=== PATIENT | female | born 1985 | race Caucasian/White ===

== ENCOUNTER 2018-12-04 08:59 | Outpatient (REF) | payer BC, SELFPAY ==
[2018-12-04 13:55] LABS: TSH (W/Ref FT4) 92.99 uIU/mL (0.358-3.74)
[2018-12-04 14:19] LABS: FREE T4 0.47 ng/dL (0.76-1.46)
== END 2018-12-04 09:19 ==
LOC: NCHCN 08:59
PROVIDERS: PCP Nurse Practitioner Family; Visit Provider Nurse Practitioner Family
DX: E03.9 Hypothyroidism, unspecified (principal)
CPT/HCPCS: 84439; 84443

== ENCOUNTER 2019-01-14 16:21 | Outpatient (REF) | payer BC, SELFPAY ==
--- NOTE | 2019-01-14 15:30 | PAPFT_PTH ---
PATIENT: Vicki Chi LOC: [facility] U#:[id number] AGE/SX: 33/F ROOM: RE01/14/[address]: Rhea Estrada : 1985 BED: DIS: 01/14/2019 SPEC #: [id number] RECD: 01/14/19 18:07 STATUS: CECE RESamantha #: [id number] MARIJA: 01/14/19 15:[address]: Rhea Estrada DEPT: [facility] Cytology RECD BY: Teodora Patiño Tissues: 1 - CX/ENDOCX FOR PAP SMEARS Procedures: PAP THIN PREP/UVM Screening HPV DNA PROBE Comments: [id number]
== END 2019-01-14 16:41 ==
LOC: NCHCN 16:21
PROVIDERS: PCP Nurse Practitioner Family; Visit Provider Nurse Practitioner Family
DX: Z00.00 Encounter for general adult medical examination without abnormal findings (principal); Z12.4 Encounter for screening for malignant neoplasm of cervix; Z11.51 Encounter for screening for human papillomavirus (HPV)
CPT/HCPCS: 88142; 87624

== ENCOUNTER 2019-04-17 09:52 | Emergency (ER) | payer BC, SELFPAY ==
[2019-04-17 09:58] VITALS: BP 134/87; PULSE 105; RESP 16; TEMP 37; O2SAT 98
--- NOTE | 2019-04-17 10:08 | DI.CT_ITS ---
SYMPTOMS/DIAGNOSIS: BLUNT LT ANTERIOR FOCAL TRAUMA, PAIN CHEST CT: The study was carried out without contrast enhancement. There is no evidence of a pneumothorax or pleural effusion. The lungs are clear. The cardiovascular structures appear intact. No acute bony abnormality is apparent. Incidentally in the upper abdomen the visualized portions of the liver are normal. The spleen is normal. SUMMARY: Normal noncontrast enhanced chest CT.
--- NOTE | 2019-04-17 10:11 | ED.GENADUL_ITS ---
Discharge Plan Disposition Patient Disposition: HOME Condition: Improving Discharge Details Chief Complaint: Chest/Rib Clinical Impression: Contusion of left chest wall Primary Care Provider: Joby Bhatia ED Provider: Colin Anderson Home Meds and New Rx's Prescriptions: Continued levothyroxine [Synthroid] 125 MCG tablet 125 mcg PO DAILY RF: 0 Discontinued amoxicillin 500 MG capsule 500 mg PO TID Qty: 30 RF: 0 Discharge Instructions Instructions: Contusion in Adults (ED) Additional Instructions: He will likely develop increased bruising and discomfort over the next 24 hours. Tylenol and/or ibuprofen as needed for pain. May alternate heat and ice to reduce discomfort. 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 She tripped in her classroom and fell forward striking the edge of a cabinet with her left anterior chest. There is no loss of consciousness. She developed immediate left anterior chest pain and some mild shortness of breath. She is anxious and tachycardic on arrival but oxygenation is normal. She is tender to palpation over the left anterior chest wall. Concern for contusion, hematoma, underlying rib fracture and less likely a pneumothorax. Patient re ferred for noncontrast CT scan of the chest which is unremarkable. She is improved with oral analgesics. She is stable for discharge to home ECG Data Attestation: I personally reviewed and interpreted this ECG (s) as follows: Interpretation: Normal sinus rhythm with a rate of 89, the QRS is narrow, no ST segment elevation present HPI General Mode of arrival: ambulatory . Date/Time Provider Initiated Documentation: 04/17/19 09:56 . Limitations to Documentation: no limitations . Information obtained by: patient and family . History of Present Illness 34 year old F presents to the emergency department with the chief complaint of Fall and left anterior chest trauma. Pain, described as moderate, Quality is described as dull and constant, and is localized to the chest. Patient reports no radiation. Patient started experiencing this minute(s) and it has been constant. No relieving factors improve symptom(s), Movement worsens symptoms . Patient notes shortness of breath. Patient did receive the following treatments prior to arrival, none Related Data Home Medications Medication Instructions Recorded Confirmed levothyroxine [Synthroid] 125 mcg PO DAILY 03/29/13 03/29/13 Allergies Allergy/AdvReac Type Severity Reaction Status Date / Time hydrocodone [Hydrocodone] Allergy Unknown Unverified 03/29/13 14:51 General Stated Complaint: Chest/Rib SANDRA: 3 Review of Systems Review of Systems No other injury. No penetrating trauma. 8 systems reviewed and otherwise negative [facility] Social History Smoking/Tobacco Use Status: Never Drug use: Never Do you feel safe at home: Yes Do you feel safe in your relationship?: Yes Exam Narrative Exam Narrative: GEN: awake, alert, oriented 3. Pleasant, well groomed, interactive. HEAD: Normocephalic, atraumatic ENT: Mucous membranes moist, oropharynx unremarkable, External ear exam unremarkable EYES: PERRL, EOMI NECK: Full ROM, no SARAH, no menigismus CHEST/RESP: Left anterior chest wall tenderness with focal area of 2 cm abrasion. No crepitus, clear to auscultation bilateral, no wheeze/rhonchi/rales CARDIOVASCULAR: RRR, no murmur, rub sergei. 2+ Rad pulse bilateral ABDOMEN: Soft, nontender, no mass. +Bowel sounds EXT: Full ROM, no edema, no rash Neuro: Grossly normal neurologic exam, conversant, interactive. Psych: Speech fluent, thoughts congruent, affect anxious Course Vital Signs Temperature 37.0 C 04/17/19 09:58 Pulse 105 H 04/17/19 09:58 Respiratory Rate 16 04/17/19 09:58 Blood Pressure 134/87 04/17/19 09:58 Pulse Oximetry 98 04/17/19 09:58 Temperature 37.0 C 04/17/19 09:58 Temperature Source Temporal Artery Scan 04/17/19 09:58 Pulse 105 H 04/17/19 09:58 Respiratory Rate 16 04/17/19 09:58 Respiratory Effort 04/17/19 10:01 Blood Pressure 134/87 04/17/19 09:58 Blood Pressure Position Sitting 04/17/19 09:58 Pulse Oximetry 98 04/17/19 09:58 Oxygen Delivery Method Room Air 04/17/19 09:58 Oxygen Flow Rate 0 04/17/19 09:58 Pain Level 6 04/17/19 09:58
[2019-04-17] MEDS: Ibuprofen 800 MG TAB PO (10:33)
[2019-04-17] MEDS: Acetaminophen 500 MG TAB 1000 MG PO (11:04)
== END 2019-04-17 11:47 | disposition home or self-care (01) ==
PROVIDERS: Emergency Provider Emergency Medicine; PCP Nurse Practitioner Family
DX: S20.212A Contusion of left front wall of thorax, initial encounter (principal); W01.198A Fall on same level from slipping, tripping and stumbling with subsequent striking against other object, initial encounter
CPT/HCPCS: 71250; 93005; 99284; 93010

== ENCOUNTER 2019-05-27 13:44 | Outpatient (REF) | payer BC, SELFPAY ==
[2019-05-27 20:23] LABS: TSH (W/Ref FT4) 4.14 uIU/mL (0.358-3.74)
[2019-05-27 21:05] LABS: FREE T4 1.34 ng/dL (0.76-1.46)
== END 2019-05-27 14:04 ==
LOC: NCHCN 13:44
PROVIDERS: PCP Nurse Practitioner Family; Visit Provider Nurse Practitioner Family
DX: E03.9 Hypothyroidism, unspecified (principal)
CPT/HCPCS: 84439; 84443

== ENCOUNTER 2019-12-02 06:52 | Emergency (ER) | payer OTHER, SELFPAY ==
[2019-12-02 07:02] VITALS: BP 122/61; PULSE 78; RESP 20; TEMP 36.8; O2SAT 97
--- NOTE | 2019-12-02 07:36 | ED.GENADUL_ITS ---
Discharge Plan Disposition Patient Disposition: HOME Condition: Stable Discharge Details Chief Complaint: Orthopedic Clinical Impression: Patellar fracture Primary Care Provider: Joby Bhatia ED Provider: Alcira Ramsay Home Meds and New Rx's Prescriptions: No Action levothyroxine [Synthroid] 125 MCG tablet 125 mcg PO DAILY RF: 0 Discharge Instructions Instructions: Patellar Fracture (ED), Knee Immobilizer (ED) Additional Instructions: Please return immediately to the emergency department if you develop any new or worsening symptoms, if your condition does not improve as expected, or if you become otherwise concerned. It is extremely important that you call soon as possible to make an appointment to be seen in follow-up for this visit by your primary care doctor, and also by an orthopedic surgeon within 7 to 10 days as we discussed. Stand Alone Forms: Work Release Referrals: Colin Roldan MD [[facility] STAFF PHYSICIAN] - Joby Bhatia NP [Primary Care Provider] - Discharge Data Discharge Date/Time-TO BE ENTERED AT DEPARTURE: 12/02/19 12:50 Medical Decision Making Vicki Arevalo is a 34-year-old woman with a history of Graves' disease who presented to the emergency with knee pain after slipping on ice and landing on her left knee. On exam there is tenderness palpation of the lateral aspect of the left knee joint and left patella. Distal left leg neurovascularly intact. Concern for possible patellar fracture, possible tibial plateau fracture. Concern for possible patellar dislocation spontaneously reduced vs less likely posterior knee dislocation spontaneously reduced. Plan for CT knee, screening labs. Xray obtained while awaiting labs, CT. Shows patellar fracture. Labs reviewed, WNL. CT shows patellar fracture, possible small condylar fx. Discussed Pt presentation results with Dr. Roldan of ortho, who requested knee immobilizer, will see Pt as outpt. I discussed results and plan with Pt, she requests additional pain meds now and for bedtime tonight. Plan for oxycodone 5mg now and also one tab for take home. I had a lengthy discussion with Patient regarding safe opiate use, return to emergency department precautions, home care, and importance of outpatient follow-up. Pt verbalizes understanding of the plan and is amenable. Patient discharged to home with clear plan for outpatient follow-up. All questions were answered. Disposition decision was made weighing the risks and benefits of hospitalization versus outpatient treatment, the risk for further decompensation, and the patient's wishes. Medical Records Medical records reviewed: Yes I reviewed the patient's medical records. Imaging Data Radiologic Study: Attestation: I personally reviewed and interpreted this imaging study as nya brennan: Radiologist's impression: EXAM: XR KNEE LT 4V AP,LAT,STEFANI,PAT INDICATION: trauma, knee pain. COMPARISON: No exams were available for comparison TECHNIQUE: 2D digital imaging was performed. FINDINGS: On the lateral view, there is a curvilinear density anterior to the femoral condyles suspicious for a displaced fracture. On the sunrise view, there is irregularity of the cortex of the lateral patella consistent with a fracture. There are several osseous densities seen posterior and lateral to the patella suggesting displaced fracture fragments. No other fracture or dislocation is seen. IMPRESSION: 1. Fracture involving the lateral aspect of the patella with displaced fracture fragments. 2. Curvilinear density seen anterior to the femoral condyles on the lateral view suspicious for a displaced fracture fragment. EXAM: CT LOWER EXTREMITY LT W CLINICAL HISTORY: trauma, r/o popliteal artery injury TECHNIQUE: CT angiography about the knee was performed following the uneventful administration of 175 mL of Omnipaque [address] angiography was performed with multi-slice acquisition and multi-planar and/or 3D reconstructions. COMPARISON: XR KNEE LT 4V AP,LAT,STEFANI,PAT from 12/02/2019 FINDINGS: There is again seen a comminuted fracture involving the lateral aspect of the patella. The fracture fragments are mildly displaced posteriorly and inferiorly. There is a curvilinear density seen anterior to the lateral femoral condyle. This was present on the x-ray of the knee. This may represent a displaced fracture from the femoral condyle. No other fracture or dislocation is identified. The popliteal artery appears intact . There is no evidence of contrast extravasation. There is a small joint effusion. IMPRESSION: 1. Fractures involving the lateral aspect of the patella and the lateral femoral condyle as described above. 2. No evidence of popliteal arterial injury. 3. The findings were discussed with the emergency department on the date of the examination. Lab Data Lab results reviewed: Yes I reviewed the patient's lab results. Labs: Laboratory Tests Range/Units 12/02/19 09:10 Sodium (136-145) mmol/L 141 Potassium (3.5-5.1) mmol/L 4.2 Chloride (98-107) mmol/L 105 Carbon Dioxide (21.0-32.0) mmol/L 27.3 Anion Gap (3-11) mmol/L 8.7 BUN (7-18) mg/dL 10 Creatinine (0.55-1.02) mg/dL 0.66 Estimated GFR/1.73 m2 (mL/min/1.73m2) >= 60.00 Glucose (74-106) mg/dL 106 Calcium (8.5-10.1) mg/dL 8.7 HPI General Mode of arrival: wheelchair . Date/Time Provider Initiated Documentation: 12/02/19 06:55 . Limitations to Documentation: no limitations . Information obtained by: patient, RN notes reviewed and old records reviewed . HPI Narrative: Vicki Arevalo is a 34 y/o woman with history of Graves' disease presenting to the emergency department with knee pain. Patient reports that she was walking into work when she slipped on ice. She states that her left leg went out straight behind her, and she landed on her left leg. Right leg went out in front of her. Patient reports that she does not think she hit her head. She does not believe that she lost consciousness, although she states that she does not remember the moment right when she hit the ground. Patient states that fall was mechanical from slipping, she had no symptoms prior to the fall. Patient reports that after the fall she felt that something was out of place in her knee, and when she went to move it popped back in but popped back in wrong. Patient reports that she has not been able to walk due to pain with weightbearing on the left leg since the fall, and continues to have left knee pain. She denies any pain of the left hip, lower leg, ankle, or foot. Patient denies any other body pain. She reports that 3 days ago she had a fever and vomiting, but that resolved after 24 hours and yesterday and this morning she felt very well and in her usual state of health. No cough, shortness of breath, fevers, vomiting, diarrhea, rash, weakness, numbness. Related Data Home Medications Medication Instructions Recorded Confirmed levothyroxine [Synthroid] 125 mcg PO DAILY 03/29/13 12/02/19 Allergies Allergy/AdvReac Type Severity Reaction Status Date / Time hydrocodone [Hydrocodone] Allergy Unknown Other (See Unverified 12/02/19 07:06 Comment) General Stated Complaint: Orthopedic SANDRA: 3 Review of Systems Narrative: Constitutional: denies fevers Eyes: denies eye pain ENT: denies ear pain, dental pain, sore throat Cardiovascular: denies chest pain Respiratory: denies SOB, cough GI: denies abdominal pain, vomiting, diarrhea : denies flank pain MSK: reports knee pain, denies any other joint pain, back pain, neck pain Skin: denies rash Neuro: denies headaches, numbness, weakness [facility] Social History Smoking/Tobacco Use Status: Never Alcohol Intake: current Alcohol Intake frequency: holidays/special occasions only Alcohol type: wine Drug use: Never Substance use type: does not use Do you feel safe at home: Yes Do you feel safe in your relationship?: Yes Exam Narrative Exam Narrative: Constitutional: [id number], pleasant, tearful and uncomfortable appearing but conversing normally HENT: head atraumatic/normocephalic/normal inspection, mucous membranes moist Eyes: conjunctiva normal, sclera normal, pupils 3mm b/l Neck: no stridor, normal ROM, trachea midline Resp: normal work of breathing Cardio: normal rate, normal rhythm Skin: warm, dry, normal color, no rash Neuro: alert, not altered, grossly non-focal, normal tone Ext: no edema, ecchymosis present along with 3 linear less than 0.5 cm supe rficial abrasions to the anteromedial aspect of the left knee, no effusion of the left knee, patella diffusely tender to palpation, medial left knee joint diffusely tender to palpation, medial aspect of the proximal tibia tender to palpation, no tenderness palpation of the thigh, midshaft or distal tibia, fibula, or ankle. No posterior calf tenderness to palpation. Full range of motion of the ankle and toes. Patient holding knee in 15 degrees of flexion, can flex to approximately 45 degrees, range of motion significantly limited by pain. Left hip nontender to palpation, able to range hip, though hip range of motion limited secondary to pain in the knee. Left DP and PT pulses intact, left foot warm and well-perfused, sensation intact. Ranging other extremities normally, other extremities atraumatic. Psych: normal mood, normal affect, normal behavior Course Vital Signs Vital signs: Vital Signs Temperature 36.8 C 12/02/19 07:02 Pulse 78 12/02/19 07:02 Respiratory Rate 20 12/02/19 07:02 Blood Pressure 122/61 12/02/19 07:02 Pulse Oximetry 97 12/02/19 07:02 Temperature 36.8 C 12/02/19 07:02 Temperature Source Temporal Artery Scan 12/02/19 07:02 Pulse 78 12/02/19 07:02 Respiratory Rate 20 12/02/19 07:02 Respiratory Effort Non-Labored 12/02/19 07:06 Blood Pressure 122/61 12/02/19 07:02 Pulse Oximetry 97 12/02/19 07:02 Oxygen Delivery Method Room Air 12/02/19 07:02 Oxygen Flow Rate 0 12/02/19 07:02 Pain Level 9 12/02/19 07:02
[2019-12-02] MEDS: oxyCODONE 5 MG TAB PO ×3 (07:49→12:26)
--- NOTE | 2019-12-02 08:24 | DI.RAD_ITS ---
EXAM: XR KNEE LT 4V AP,LAT,STEFANI,PAT INDICATION: trauma, knee pain. COMPARISON: No exams were available for comparison TECHNIQUE: 2D digital imaging was performed. FINDINGS: On the lateral view, there is a curvilinear density anterior to the femoral condyles suspicious for a displaced fracture. On the sunrise view, there is irregularity of the cortex of the lateral patella consistent with a fracture. There are several osseous densities seen posterior and lateral to the p atella suggesting displaced fracture fragments. No other fracture or dislocation is seen. IMPRESSION: 1. Fracture involving the lateral aspect of the patella with displaced fracture fragments. 2. Curvilinear density seen anterior to the femoral condyles on the lateral view suspicious for a dis placed fracture fragment.
[2019-12-02 09:30] LABS: Anion Gap 8.7 mmol/L (3-11); BUN 10 mg/dL (7-18); CO2 27.3 mmol/L (21.0-32.0); CREATININE 0.66 mg/dL (0.55-1.02); Calcium 8.7 mg/dL (8.5-10.1); Chloride 105 mmol/L (98-107); Glucose 106 mg/dL (74-106); Potassium 4.2 mmol/L (3.5-5.1); Sodium 141 mmol/L (136-145)
--- NOTE | 2019-12-02 09:42 | DI.CT_ITS ---
EXAM: CT LOWER EXTREMITY LT W CLINICAL HISTORY: trauma, r/o popliteal artery injury TECHNIQUE: CT angiography about the knee was performed following the uneventful administration of 17 5 mL of Omnipaque [address] angiography was performed with multi-slice acquisition and multi-planar and/or 3D reconstruc tions. COMPARISON: XR KNEE LT 4V AP,LAT,STEFANI,PAT from 12/02/2019 FINDINGS: There is again seen a comminuted fracture involving the lateral aspect of the patella. The fracture f ragments are mildly displaced posteriorly and inferiorly. There is a curvilinear density seen anteri or to the lateral femoral condyle. This was present on the x-ray of the knee. This may represent a d isplaced fracture from the femoral condyle. No other fracture or dislocation is identified. The popliteal artery appears intact . There is no evidence of contrast extravasation. There is a small joint effusion. IMPRESSION: 1. Fractures involving the lateral aspect of the patella and the lateral femoral condyle as described above. 2. No evidence of popliteal arterial injury. 3. The findings were discussed with the emergency department on the date of the examination.
[2019-12-02 12:43] VITALS: BP 122/61; PULSE 78; RESP 20; TEMP 36.8; O2SAT 97
== END 2019-12-02 12:50 | disposition home or self-care (01) ==
PROVIDERS: Emergency Provider Student in an Organized Health Care Education/Training Program; PCP Nurse Practitioner Family
DX: S82.042A Displaced comminuted fracture of left patella, initial encounter for closed fracture (principal); W00.0XXA Fall on same level due to ice and snow, initial encounter
CPT/HCPCS: 29505; 36415; 80048; 81025; 90471; 99284; 73564; 73701; E0114; L1830

== ENCOUNTER 2021-01-12 18:24 | Outpatient (REF) | payer SELFPAY ==
[2021-01-12 19:27] LABS: TSH (W/Ref FT4) 20.54 uIU/mL (0.36-3.74)
[2021-01-12 19:57] LABS: FREE T4 1.05 ng/dL (0.76-1.46)
== END 2021-01-12 18:25 | disposition home or self-care (01) ==
LOC: NCHCN 18:24
PROVIDERS: PCP Nurse Practitioner Family; Visit Provider Nurse Practitioner Family
DX: E03.9 Hypothyroidism, unspecified (principal)
CPT/HCPCS: 84439; 84443

== ENCOUNTER 2023-08-11 20:46 | Outpatient (REF) | payer BC, SELFPAY ==
[2023-08-11 18:10] LABS: Anion Gap 12.1 mmol/L (3-11); BUN 14 mg/dL (7-18); CO2 24.9 mmol/L (21.0-32.0); CREATININE 0.8 mg/dL (0.55-1.02); Chloride 100 mmol/L (98-107); Estimated GFR 97.26 (mL/min/1.73m2); Glucose 92 mg/dL (74-106); Potassium 4.1 mmol/L (3.5-5.1); Sodium 137 mmol/L (136-145)
[2023-08-11 18:13] LABS: HGB 12.7 g/dL (11.2-15.7); MCH 29.8 pg (27.0-33.0); MCHC 34.3 % (32.0-36.0); MCV 87 fL (80-95); MPV 10.2 fL (8.0-11.0); Platelet Count 366 10^3/uL (130-400); RBC 4.26 10^6/uL (3.93-5.22); RDW 13.1 % (11.7-14.6); RDW-SD 41.1 fL; WBC 9.96 10^3/uL (4.4-10.8)
[2023-08-11 18:34] LABS: TSH (W/Ref FT4) 93.76 uIU/mL (0.36-3.74)
[2023-08-11 18:41] LABS: Calculated LDL 157 mg/dL (<100); Cholesterol 247 mg/dL (<200); HDL Cholesterol 58 mg/dL (40-60); Triglyceride 162 mg/dL (<150)
[2023-08-11 20:06] LABS: Hemoglobin A1C 5.7 % (<5.7)
== END 2023-08-11 20:47 | disposition home or self-care (01) ==
LOC: NCHCN 20:46
PROVIDERS: Visit Provider Nurse Practitioner Family
DX: E03.9 Hypothyroidism, unspecified (principal); R79.89 Other specified abnormal findings of blood chemistry
CPT/HCPCS: 80048; 80061; 85027; 83036; 84439; 84443

== ENCOUNTER 2023-11-22 16:11 | Outpatient (REF) | payer BC, SELFPAY ==
[2023-11-22 19:14] LABS: HCT 38.9 % (36.0-46.0); MCH 28.9 pg (27.0-33.0); MCHC 33.4 % (32.0-36.0); MCV 86 fL (80-95); MPV 9.9 fL (8.0-11.0); Platelet Count 312 10^3/uL (130-400); RDW 12.8 % (11.7-14.6); RDW-SD 40.1 fL; WBC 9.35 10^3/uL (4.4-10.8)
[2023-11-22 19:21] LABS: ALT 68 U/L (14-59); AST 49 U/L (15-37); Albumin 3.8 g/dL (3.4-5.0); Alkaline Phosphatase 61 U/L (46-116); Anion Gap 9.7 mmol/L (3-11); BUN 14 mg/dL (7-18); Bilirubin, Total 0.6 mg/dL (0.2-1.0); CO2 27.3 mmol/L (21.0-32.0); CREATININE 0.7 mg/dL (0.55-1.02); Calcium 9.6 mg/dL (8.5-10.1); Chloride 100 mmol/L (98-107); Estimated GFR 114.16 (mL/min/1.73m2); Glucose 94 mg/dL (74-106); Sodium 137 mmol/L (136-145); Total Protein 7.8 g/dL (6.4-8.2)
== END 2023-11-22 16:12 | disposition home or self-care (01) ==
LOC: NCHCN 16:11
PROVIDERS: Visit Provider Nurse Practitioner Family
DX: R51.9 Headache, unspecified (principal); Z68.43 Body mass index [BMI] 50.0-59.9, adult; E66.9 Obesity, unspecified
CPT/HCPCS: 80053; 85027; 83036

== ENCOUNTER 2023-12-12 12:44 | Outpatient (REF) | payer BC, SELFPAY ==
--- NOTE | 2023-12-12 11:00 | PAPFT_PTH ---
PATIENT: Vicki Chi LOC: [facility] U#:[id number] AGE/SX: 38/F ROOM: RE12/12/[address]: Elham Mclain MD : 1985 BED: DIS: 12/12/2023 SPEC #: [id number] RECD: 12/12/23 18:09 STATUS: CECE RESamantha #: [id number] MARIJA: 12/12/23 11:[address]: Elham Mclain DEPT: [facility] Cytology RECD BY: Teodora Patiño ENTERED: 12/12/23 18:09 SP TYPE: PAPFT ASHISH DR: Unknown,Unknown Tissues: 1 - CX/ENDOCX FOR PAP SMEARS Procedures: PAP THIN PREP/UVM Screening HPV DNA PROBE Comments: [id number]
== END 2023-12-12 12:45 | disposition home or self-care (01) ==
LOC: LBN 12:44
PROVIDERS: Visit Provider Obstetrics & Gynecology
DX: Z01.419 Encounter for gynecological examination (general) (routine) without abnormal findings (principal)
CPT/HCPCS: 88142; 87624